=== PATIENT | male | born 1990 | race African-American/Black ===

== ENCOUNTER → 2016-10-18 | Outpatient (CLI) | payer OTHER ==
--- NOTE | ~2016-10-18 | CT2 ---
[facility] A Service of [facility] RADIOLOGY TEXT RESULTS PATIENT: JORDI GRAY [facility] : [birth year] UNIT #: [id number] AGE: [address]: JUANY SOARES SEX: M ORDER DR: [id number] [facility] [address] [place], [place] [address] [id number] O MR#: [id number] Acc #: [id number] NAME: JORDI GRAY : 1990 SEX: M STUDY DATE/TIME: 10/18/2016 15:52 UNIT: [facility] ROOM: STUDY DESCRIPTION: CT Abd and Pelv W Cont Attending Physician: Juany Soares Aprn Referring Physician: Juany Soares Aprn Ordering Physician: Juany Soares Aprn Primary Care Physician: Juany Soares Aprn MEDICAL IMAGING REPORT This report is preliminary unless electronic signature is present EXAM Abdomen and pelvis CT with contrast 10/18/2016. INDICATIONS 26-year-old male with a history of right lower quadrant pain for a week. No prior surgery or history of malignancy. TECHNIQUE Contrast-enhanced abdomen and pelvis CT was performed. This CT exam was performed with one or more of the following radiation dose reduction techniques: automatic exposure control, adjustment of mA and/or kV according to patient size, and iterative reconstruction. COMPARISON We have no comparisons. FINDINGS CT ABDOMEN: Included lung bases are clear. Aorta unremarkable. Probable mild fatty infiltration of the liver. Solid abdominal organs are otherwise unremarkable. CT PELVIS: Bladder and prostate are unremarkable. No drainable fluid collection in the pelvis. Stool burden most characteristic of constipation. No bowel obstruction. Appendix normal. Inguinal canals are unremarkable. No suspicious bone lesion. IMPRESSION Mild fatty infiltration of the liver; otherwise negative abdomen and pelvis CT with contrast. Appendix normal. Incidental mild constipation. Dictated by... Brando Zacarias M.D. [facility] A Service of [facility] RADIOLOGY TEXT RESULTS PATIENT: JORDI GRAY LOCATION: [facility] : [birth year] UNIT #: [id number] AGE: [address]: JUANY SOARES SEX: M ORDER DR: THIS IS AN ELECTRONICALLY VERIFIED REPORT Brando Zacarias M.D. at 10/19/2016 5:16 PM [place] TD: 10/19/2016 12:38 JOB #: [id number] MEDICAL IMAGING REPORT Page 1 of 1 COPY
== END | disposition home or self-care (01) ==
LOC: CCAT 14:52
DX: R10.31 Right lower quadrant pain (principal); K76.0 Fatty (change of) liver, not elsewhere classified
CPT/HCPCS: 74177; Q9967